=== PATIENT | female | born 1940 | race Caucasian/White ===

== ENCOUNTER → 2016-11-20 | Outpatient (CLI) | payer MEDICARE, BC ==
[~2016-11-20] VITALS: Ht 160 cm; Wt 115.9 kg
[~2016-11-20] MED LIST: ATIVAN 0.50.5 MG/TAB PO; CALTRATE-600 W600 MG PO; COZAAR 25MG25 MG/TAB PO; DIOVAN80 M1 PO; ESTRACE0.5 MG PO; HCTZ 25MG25 MG PO; LASIX 40MG TABL40 MG PO; OMEGA COMPLEX PO; PRAVACHOL10 MG PO; PREMARIN0.625 MG PO; SYNTHROID0.088 MG/T PO
[2016-11-20 09:16] VITALS: BP 152/72; PULSE 68
== END ==
LOC: LIGHT 08:59
DX: G47.33 Obstructive sleep apnea (adult) (pediatric) (principal); E03.9 Hypothyroidism, unspecified; E88.81 Metabolic syndrome and other insulin resistance; E66.01 Morbid (severe) obesity due to excess calories; Z68.42 Body mass index [BMI] 45.0-49.9, adult; Z71.3 Dietary counseling and surveillance

== ENCOUNTER → 2016-12-19 | Outpatient (CLI) | payer MEDICARE, BC ==
[~2016-12-19] VITALS: Ht 160 cm; Wt 118.2 kg
[2016-12-19 09:25] VITALS: BP 138/70; PULSE 76
== END ==
LOC: LIGHT 12-09 15:31
DX: G47.33 Obstructive sleep apnea (adult) (pediatric) (principal); E03.9 Hypothyroidism, unspecified; E88.81 Metabolic syndrome and other insulin resistance; E66.01 Morbid (severe) obesity due to excess calories; Z68.41 Body mass index [BMI] 40.0-44.9, adult; Z71.3 Dietary counseling and surveillance

== ENCOUNTER → 2017-01-22 | Outpatient (CLI) | payer MEDICARE, BC | LOC: LIGHT 10:56 | DX: Z01.89 Encounter for other specified special examinations (principal) ==

== ENCOUNTER → 2017-01-23 | Outpatient (CLI) | payer MEDICARE, BC ==
[~2017-01-23] VITALS: Ht 160 cm; Wt 115.4 kg
[2017-01-23 13:35] VITALS: BP 150/80; PULSE 100
== END ==
LOC: LIGHT 13:18
DX: E66.9 Obesity, unspecified (principal); Z68.42 Body mass index [BMI] 45.0-49.9, adult; Z71.3 Dietary counseling and surveillance

== ENCOUNTER → 2017-02-17 | Outpatient (CLI) | payer MEDICARE, BC | LOC: MC.RAD 13:40 | DX: Z12.31 Encounter for screening mammogram for malignant neoplasm of breast (principal) ==

== ENCOUNTER → 2017-02-27 | Outpatient (CLI) | payer MEDICARE, BC ==
[~2017-02-27] VITALS: Ht 160 cm; Wt 115.0 kg
[2017-02-27 13:32] VITALS: BP 144/70; PULSE 72
== END ==
LOC: LIGHT 11:06
DX: G47.33 Obstructive sleep apnea (adult) (pediatric) (principal); E03.9 Hypothyroidism, unspecified; E88.81 Metabolic syndrome and other insulin resistance; E66.01 Morbid (severe) obesity due to excess calories; Z68.41 Body mass index [BMI] 40.0-44.9, adult; Z71.3 Dietary counseling and surveillance

== ENCOUNTER → 2017-03-27 | Outpatient (CLI) | payer MEDICARE, BC ==
[~2017-03-27] VITALS: Ht 160 cm; Wt 116.8 kg
[2017-03-27 10:32] VITALS: BP 126/52; PULSE 64
== END ==
LOC: LIGHT 10:25
DX: G47.33 Obstructive sleep apnea (adult) (pediatric) (principal); E03.9 Hypothyroidism, unspecified; E88.81 Metabolic syndrome and other insulin resistance; E66.01 Morbid (severe) obesity due to excess calories; Z68.41 Body mass index [BMI] 40.0-44.9, adult; Z71.3 Dietary counseling and surveillance
CPT/HCPCS: G0463

== ENCOUNTER → 2017-03-27 | Outpatient (CLI) | payer MEDICARE, BC | LOC: LIGHT 12-23 08:23 | DX: G47.33 Obstructive sleep apnea (adult) (pediatric) (principal); E03.9 Hypothyroidism, unspecified; E88.81 Metabolic syndrome and other insulin resistance; E66.01 Morbid (severe) obesity due to excess calories; Z68.42 Body mass index [BMI] 45.0-49.9, adult; Z71.3 Dietary counseling and surveillance ==

== ENCOUNTER → 2017-04-24 | Outpatient (CLI) | payer MEDICARE, BC ==
[~2017-04-24] VITALS: Ht 160 cm; Wt 116.1 kg
[2017-04-24 11:01] VITALS: BP 134/64; PULSE 76
== END ==
LOC: LIGHT 10:40
DX: G47.33 Obstructive sleep apnea (adult) (pediatric) (principal); E03.9 Hypothyroidism, unspecified; E88.81 Metabolic syndrome and other insulin resistance; E66.01 Morbid (severe) obesity due to excess calories; Z68.41 Body mass index [BMI] 40.0-44.9, adult; Z71.3 Dietary counseling and surveillance
CPT/HCPCS: G0463

== ENCOUNTER → 2017-05-22 | Outpatient (CLI) | payer MEDICARE, BC ==
[~2017-05-22] VITALS: Ht 160 cm; Wt 115.0 kg
[2017-05-22 16:12] VITALS: BP 120/72; PULSE 88
== END ==
LOC: LIGHT 09:49
DX: G47.33 Obstructive sleep apnea (adult) (pediatric) (principal); E03.9 Hypothyroidism, unspecified; E88.81 Metabolic syndrome and other insulin resistance; E66.01 Morbid (severe) obesity due to excess calories; Z68.41 Body mass index [BMI] 40.0-44.9, adult; Z71.3 Dietary counseling and surveillance
CPT/HCPCS: G0463

== ENCOUNTER 2017-07-13 12:21 | Emergency (ER) | payer MEDICARE, BC ==
[~2017-07-13] VITALS: Ht 157.5 cm; Wt 113.6 kg
[2017-07-13 12:32] VITALS: TEMP 97.8
[2017-07-13 12:40] LABS: COLLECTION METHOD CLEAN CATCH
[2017-07-13 12:54] LABS: MUCOUS Present /lpf; PH 5 (5-8); SQUAMOUS EPITHELIAL 20-50 /hpf; URINE APPEARANCE Cloudy; URINE BACTERIA Occasional /hpf; URINE BILIRUBIN Negative (NEGATIVE); URINE BLOOD Negative (NEGATIVE); URINE CALCIUM OXALATE CRYSTAL Present /hpf; URINE COLOR Amber; URINE GLUCOSE 1+ (NEGATIVE); URINE KETONE Trace (NEGATIVE); URINE LEUKOCYTE ESTERASE Negative (NEGATIVE); URINE NITRATE Negative (NEGATIVE); URINE PROTEIN(semi-quant) 1+ (NEGATIVE); URINE RBC None Seen /hpf; URINE UROBILINOGEN Negative (NEGATIVE)
[2017-07-13 12:56] LABS: BASO # 0.1 (0.0-0.2); BASO % 0.5 % (0.0-2.0); EOS # 0.1 (0.0-0.7); EOS % 0.6 % (0-4.0); GRAN # 9.3 (1.4-6.5); GRAN % 82.4 % (42.2-75.2); HEMATOCRIT 43.9 % (37.0-47.0); HEMOGLOBIN 14.4 g/dl (12.5-16.0); LYMPH # 1.2 (1.2-3.4); LYMPH % 10.8 % (20.0-51.0); MEAN CELL VOLUME 94 fl (80.0-100.0); MEAN CORPUSCULAR HEMOGLOBIN 31 pg (27.0-31.0); MEAN CORPUSCULAR HGB CONC 33 g/dl (33.0-37.0); MEAN PLATELET VOLUME 10.6 fl (7.4-10.4); MONO # 0.6 (0.1-0.6); MONO % 5.2 % (1.7-9.3); PLATELET COUNT 189 K/mm3 (130-400); RED BLOOD COUNT 4.67 M/mm3 (4.10-5.30); REDCELL DISTRIBUTION WIDTH-CV 13.7 % (11.5-14.5)
[2017-07-13 13:06] LABS: ALANINE AMINOTRANSFERASE 50 U/L (9-52); ALKALINE PHOSPHATASE 77 U/L (50-136); ANION GAP 15 mmol/L (7-16); AST,SGOT 44 U/L (15-37); BILIRUBIN,TOTAL 0.4 mg/dL (0.0-1.0); BLOOD UREA NITROGEN 16 mg/dL (7-17); CARBON DIOXIDE 26 mmol/L (22-30); CHLORIDE 101 mmol/L (98-107); CREATININE, serum 1.28 mg/dL (0.52-1.25); GLUCOSE 183 mg/dL (74-106); POTASSIUM 3.7 mmol/L (3.4-5.0); SODIUM 142 mmol/L (137-145); TOTAL PROTEIN 7.4 gm/dL (6.4-8.2)
[2017-07-13 13:23] LABS: LIPASE 93 U/L (23-300)
[2017-07-13 13:24] LABS: C-REACTIVE PROTEIN < 0.5 mg/dL (0.0-0.9)
[2017-07-13 13:30] VITALS: BP 164/63
[2017-07-13] MEDS ORDERED: TORADOL 10MG TA10 MG PO (14:10)
[2017-07-13] MEDS ORDERED: ZOFRAN ODT4 MG PO (14:10)
[2017-07-13] MEDS ORDERED: NORCO 325 MG-51 TAB PO (14:10)
[2017-07-13 14:23] VITALS: PULSE 74
== END 2017-07-13 14:25 | disposition home or self-care (01) ==
LOC: COL.ER 12:21
PROVIDERS: Nurse Practitioner
DX: N13.2 Hydronephrosis with renal and ureteral calculous obstruction (principal); I10 Essential (primary) hypertension; E78.5 Hyperlipidemia, unspecified; E03.9 Hypothyroidism, unspecified; Z90.710 Acquired absence of both cervix and uterus
CPT/HCPCS: J1885; J2405; J3010; J7040; Q9967

== ENCOUNTER 2017-07-16 08:30 | Outpatient (RCR) | payer MEDICARE, BC ==
[~2017-07-16 08:30] MED LIST changes: +NORCO 325 MG-51 TAB PO; +TORADOL 10MG TA10 MG PO; +ZOFRAN ODT4 MG PO
== END 2017-07-17 | disposition home or self-care (01) ==
LOC: WSPT
DX: M17.11 Unilateral primary osteoarthritis, right knee (principal)
CPT/HCPCS: G8978-GP; G8979-GP

== ENCOUNTER 2017-07-19 17:19 | Emergency (ER) | payer MEDICARE, BC ==
[~2017-07-19] VITALS: Ht 162.6 cm; Wt 113.6 kg
[2017-07-19 17:35] VITALS: BP 148/87; PULSE 79; TEMP 98.3
[2017-07-19] MEDS ORDERED: ATARAX 25MG25 MG/TAB PO (18:04)
== END 2017-07-19 18:05 | disposition home or self-care (01) ==
LOC: COL.ER 17:19
DX: L50.9 Urticaria, unspecified (principal); T78.40XA Allergy, unspecified, initial encounter
CPT/HCPCS: J1100

== ENCOUNTER 2017-09-05 08:30 | Outpatient (RCR) | payer MEDICARE, BC ==
[~2017-09-05 08:30] MED LIST changes: +ATARAX 25MG25 MG/TAB PO
== END 2017-09-29 08:55 | disposition home or self-care (01) ==
LOC: WSPT 08:30
DX: M17.11 Unilateral primary osteoarthritis, right knee (principal)
CPT/HCPCS: G8978-GP; G8979-GP; G8980-GP

== ENCOUNTER → 2017-09-18 | Outpatient (CLI) | payer MEDICARE, BC ==
[~2017-09-18] VITALS: Ht 162.6 cm; Wt 115.7 kg
[2017-09-18 10:15] VITALS: BP 118/60; PULSE 64
== END ==
LOC: LIGHT 06-23 14:31
DX: G47.33 Obstructive sleep apnea (adult) (pediatric) (principal); E03.9 Hypothyroidism, unspecified; E88.81 Metabolic syndrome and other insulin resistance; E66.01 Morbid (severe) obesity due to excess calories; Z68.41 Body mass index [BMI] 40.0-44.9, adult; Z71.3 Dietary counseling and surveillance
CPT/HCPCS: G0463

== ENCOUNTER → 2017-10-16 | Outpatient (CLI) | payer MEDICARE, BC ==
[~2017-10-16] VITALS: Ht 162.6 cm; Wt 115.4 kg
[~2017-10-16] MED LIST changes: +PHENTERMINE15 MG PO
[2017-10-16 11:04] VITALS: BP 128/74; PULSE 76
== END ==
LOC: LIGHT 10:53
DX: G47.33 Obstructive sleep apnea (adult) (pediatric) (principal); E03.9 Hypothyroidism, unspecified; E88.81 Metabolic syndrome and other insulin resistance; E66.01 Morbid (severe) obesity due to excess calories; Z68.41 Body mass index [BMI] 40.0-44.9, adult; Z71.3 Dietary counseling and surveillance
CPT/HCPCS: G0463

== ENCOUNTER → 2017-11-20 | Outpatient (CLI) | payer MEDICARE, BC ==
[~2017-11-20] VITALS: Ht 162.6 cm; Wt 113.6 kg
[2017-11-20 13:09] VITALS: BP 138/70; PULSE 64
== END ==
LOC: LIGHT 12:50
DX: G47.33 Obstructive sleep apnea (adult) (pediatric) (principal); E03.9 Hypothyroidism, unspecified; E88.81 Metabolic syndrome and other insulin resistance; E66.01 Morbid (severe) obesity due to excess calories; Z68.41 Body mass index [BMI] 40.0-44.9, adult; Z71.3 Dietary counseling and surveillance
CPT/HCPCS: G0463

== ENCOUNTER → 2017-12-25 | Outpatient (CLI) | payer MEDICARE, BC ==
[~2017-12-25] VITALS: Ht 162.6 cm; Wt 114.1 kg
[2017-12-25 09:22] VITALS: BP 108/56; PULSE 64
== END ==
LOC: LIGHT 09:13
DX: G47.33 Obstructive sleep apnea (adult) (pediatric) (principal); E03.9 Hypothyroidism, unspecified; E88.81 Metabolic syndrome and other insulin resistance; E66.9 Obesity, unspecified; Z68.41 Body mass index [BMI] 40.0-44.9, adult; Z71.3 Dietary counseling and surveillance
CPT/HCPCS: G0463

== ENCOUNTER → 2018-03-26 | Outpatient (CLI) | payer MEDICARE, BC ==
[~2018-03-26] VITALS: Ht 162.6 cm; Wt 115.0 kg
[2018-03-26 10:52] VITALS: BP 120/60; PULSE 68
== END ==
LOC: LIGHT 01-29 11:29
DX: G47.33 Obstructive sleep apnea (adult) (pediatric) (principal); E03.9 Hypothyroidism, unspecified; E88.81 Metabolic syndrome and other insulin resistance; E66.01 Morbid (severe) obesity due to excess calories; Z68.41 Body mass index [BMI] 40.0-44.9, adult; Z71.3 Dietary counseling and surveillance
CPT/HCPCS: G0463

== ENCOUNTER → 2018-07-09 | Outpatient (CLI) | payer MEDICARE, BC ==
[~2018-07-09] VITALS: Ht 162.6 cm; Wt 112.9 kg
[2018-07-09 11:32] VITALS: BP 130/74; PULSE 76
== END ==
LOC: LIGHT 04-30 11:21
DX: G47.33 Obstructive sleep apnea (adult) (pediatric) (principal); E03.9 Hypothyroidism, unspecified; E88.81 Metabolic syndrome and other insulin resistance; E66.01 Morbid (severe) obesity due to excess calories; Z68.42 Body mass index [BMI] 45.0-49.9, adult; Z71.3 Dietary counseling and surveillance
CPT/HCPCS: G0463

== ENCOUNTER → 2018-08-20 | Outpatient (CLI) | payer MEDICARE, BC ==
[~2018-08-20] VITALS: Ht 162.6 cm; Wt 109.8 kg
[~2018-08-20] MED LIST changes: +LASIX 20MG TABL20 MG PO; +NATURAL MAGNES200 MG PO; -SYNTHROID0.088 MG/T PO; +SYNTHROID0.1 MG/TAB PO; +WELLBUTRIN SR150 M1 PO
[2018-08-20 13:51] VITALS: BP 146/80; PULSE 80
== END ==
LOC: LIGHT 13:35
DX: G47.33 Obstructive sleep apnea (adult) (pediatric) (principal); E03.9 Hypothyroidism, unspecified; E88.81 Metabolic syndrome and other insulin resistance; E66.01 Morbid (severe) obesity due to excess calories; Z68.41 Body mass index [BMI] 40.0-44.9, adult; Z71.3 Dietary counseling and surveillance
CPT/HCPCS: G0463

== ENCOUNTER 2018-09-15 09:28 | Emergency (ER) | payer MEDICARE, BC ==
[~2018-09-15] VITALS: Ht 162.6 cm; Wt 107.7 kg
[2018-09-15 09:37] VITALS: TEMP 97.3
[2018-09-15 10:02] LABS: COLLECTION METHOD CLEAN CATCH
[2018-09-15 10:13] LABS: MUCOUS Present /lpf; PH 5 (5-8); URINE APPEARANCE Cloudy; URINE BACTERIA Rare /hpf; URINE BILIRUBIN Negative (NEGATIVE); URINE BLOOD Negative (NEGATIVE); URINE COLOR Amber; URINE GLUCOSE Negative (NEGATIVE); URINE KETONE Negative (NEGATIVE); URINE LEUKOCYTE ESTERASE Trace (NEGATIVE); URINE NITRATE Negative (NEGATIVE); URINE PROTEIN(semi-quant) Negative (NEGATIVE)
[2018-09-15 11:00] LABS: BASO # 0.1 (0.0-0.2); BASO % 0.5 % (0.0-2.0); EOS # 0.2 (0.0-0.7); EOS % 1.8 % (0-4.0); GRAN # 7.6 (1.4-6.5); HEMATOCRIT 41.3 % (37.0-47.0); HEMOGLOBIN 13.4 g/dl (12.5-16.0); LYMPH # 1.6 (1.2-3.4); LYMPH % 15.3 % (20.0-51.0); MEAN CELL VOLUME 93 fl (80.0-100.0); MEAN CORPUSCULAR HEMOGLOBIN 30 pg (27.0-31.0); MEAN CORPUSCULAR HGB CONC 32 g/dl (33.0-37.0); MEAN PLATELET VOLUME 10.5 fl (7.4-10.4); MONO # 0.8 (0.1-0.6); PLATELET COUNT 170 K/mm3 (130-400); RED BLOOD COUNT 4.44 M/mm3 (4.10-5.30); REDCELL DISTRIBUTION WIDTH-CV 13.6 % (11.5-14.5)
[2018-09-15] MEDS ORDERED: SYNTHROID 0.0.025 MG PO (11:07)
[2018-09-15 11:13] LABS: ALBUMIN 3.4 gm/dL (3.5-5.0); BILIRUBIN,TOTAL 0.7 mg/dL (0.0-1.0); C-REACTIVE PROTEIN 5.5 mg/dL (0.0-0.9); CALCIUM 8.9 mg/dL (8.4-10.2); CREATININE, serum 1.15 (0.52-1.25); POTASSIUM 3.4 mmol/L (3.4-5.0); TOTAL PROTEIN 6.6 gm/dL (6.4-8.2)
[2018-09-15] MEDS ORDERED: WELLBUTRIN SR150 M1 PO (12:32)
[2018-09-15] MEDS ORDERED: CIPRO 500MG TA500 MG PO (13:01)
[2018-09-15] MEDS ORDERED: NORCO 325 MG-51 TAB PO (13:01)
[2018-09-15] MEDS ORDERED: FLAGYL500 MG PO (13:01)
[2018-09-15 13:27] VITALS: BP 147/72; PULSE 83
== END 2018-09-15 13:36 | disposition home or self-care (01) ==
LOC: COL.ER 09:28
PROVIDERS: Emergency Medicine; Nurse Practitioner
DX: K57.32 Diverticulitis of large intestine without perforation or abscess without bleeding (principal); N39.0 Urinary tract infection, site not specified; I10 Essential (primary) hypertension; Z90.710 Acquired absence of both cervix and uterus; Z87.442 Personal history of urinary calculi
CPT/HCPCS: J2270; J2405; J7030; Q9967

== ENCOUNTER → 2018-10-07 | Outpatient (CLI) | payer MEDICARE, BC ==
[~2018-10-07] MED LIST changes: +CIPRO 500MG TA500 MG PO; +FLAGYL500 MG PO; +SYNTHROID 0.0.025 MG PO
== END ==
LOC: MC.RAD 14:51
DX: Z12.31 Encounter for screening mammogram for malignant neoplasm of breast (principal)

== ENCOUNTER → 2018-10-29 | Outpatient (CLI) | payer MEDICARE, BC ==
[~2018-10-29] VITALS: Ht 162.6 cm; Wt 109.1 kg
[2018-10-29 15:53] VITALS: BP 148/86; PULSE 80
== END ==
LOC: LIGHT 09-24 10:19
DX: Z12.31 Encounter for screening mammogram for malignant neoplasm of breast (principal); G47.33 Obstructive sleep apnea (adult) (pediatric); E03.9 Hypothyroidism, unspecified; E88.81 Metabolic syndrome and other insulin resistance; E66.01 Morbid (severe) obesity due to excess calories; Z68.41 Body mass index [BMI] 40.0-44.9, adult; Z71.3 Dietary counseling and surveillance
CPT/HCPCS: G0463

== ENCOUNTER → 2018-12-10 | Outpatient (CLI) | payer MEDICARE, BC ==
[~2018-12-10] VITALS: Ht 162.6 cm; Wt 109.3 kg
[2018-12-10 09:40] VITALS: BP 136/60; PULSE 60
== END ==
LOC: LIGHT 09:33
DX: G47.33 Obstructive sleep apnea (adult) (pediatric) (principal); E03.9 Hypothyroidism, unspecified; E88.81 Metabolic syndrome and other insulin resistance; E66.01 Morbid (severe) obesity due to excess calories; Z68.41 Body mass index [BMI] 40.0-44.9, adult; Z71.3 Dietary counseling and surveillance
CPT/HCPCS: G0463

== ENCOUNTER → 2019-01-14 | Outpatient (CLI) | payer MEDICARE, BC ==
[~2019-01-14] VITALS: Ht 162.6 cm; Wt 107.7 kg
[2019-01-14 09:21] VITALS: BP 146/80; PULSE 84
== END ==
LOC: LIGHT 09:16
DX: G47.33 Obstructive sleep apnea (adult) (pediatric) (principal); E03.9 Hypothyroidism, unspecified; E88.81 Metabolic syndrome and other insulin resistance; E66.9 Obesity, unspecified; Z68.41 Body mass index [BMI] 40.0-44.9, adult; Z71.3 Dietary counseling and surveillance
CPT/HCPCS: G0463

== ENCOUNTER → 2019-09-09 | Outpatient (CLI) | payer MEDICARE, BC ==
[~2019-09-09] VITALS: Ht 162.6 cm; Wt 111.8 kg
[2019-09-09 10:09] VITALS: BP 142/70; PULSE 60
== END ==
LOC: LIGHT 02-18 11:49
DX: E66.8 Other obesity (principal); Z68.41 Body mass index [BMI] 40.0-44.9, adult; E03.9 Hypothyroidism, unspecified
CPT/HCPCS: G0463

== ENCOUNTER → 2019-10-28 | Outpatient (CLI) | payer MEDICARE, BC ==
[~2019-10-28] VITALS: Ht 162.6 cm; Wt 111.6 kg
[2019-10-28 11:34] VITALS: BP 136/84; PULSE 66
== END ==
LOC: LIGHT 10-14 11:33
DX: E66.01 Morbid (severe) obesity due to excess calories (principal); Z68.41 Body mass index [BMI] 40.0-44.9, adult; E03.9 Hypothyroidism, unspecified; E88.81 Metabolic syndrome and other insulin resistance
CPT/HCPCS: G0463

== ENCOUNTER → 2019-11-11 | Outpatient (CLI) | payer MEDICARE, BC | LOC: MC.RAD 10:19 | DX: Z12.31 Encounter for screening mammogram for malignant neoplasm of breast (principal) ==

== ENCOUNTER → 2020-01-27 | Outpatient (CLI) | payer MEDICARE, BC ==
[~2020-01-27] VITALS: Ht 162.6 cm; Wt 108.9 kg
[2020-01-27 11:06] VITALS: BP 136/80; PULSE 84
== END ==
LOC: LIGHT 12-16 14:33
DX: E66.01 Morbid (severe) obesity due to excess calories (principal); Z68.41 Body mass index [BMI] 40.0-44.9, adult; E88.81 Metabolic syndrome and other insulin resistance; G47.30 Sleep apnea, unspecified
CPT/HCPCS: G0463

== ENCOUNTER 2020-08-04 22:18 | Observation (INO) | payer MEDICARE, BC ==
[~2020-08-04] VITALS: Ht 162.6 cm; Wt 105.4 kg
[2020-08-04 22:44] LABS: BASO # 0.1 (0.0-0.2); BASO % 0.9 % (0.0-2.0); EOS # 0.2 (0.0-0.7); GRAN # 7.8 (1.4-6.5); GRAN % 73.1 % (42.2-75.2); HEMATOCRIT 46.2 % (37.0-47.0); LYMPH # 1.9 (1.2-3.4); LYMPH % 17.9 % (20.0-51.0); MEAN CELL VOLUME 95 fl (80.0-100.0); MEAN CORPUSCULAR HEMOGLOBIN 31 pg (27.0-31.0); MEAN CORPUSCULAR HGB CONC 33 g/dl (33.0-37.0); MEAN PLATELET VOLUME 10.6 fl (7.4-10.4); MONO # 0.6 (0.1-0.6); MONO % 5.6 % (1.7-9.3); PLATELET COUNT 212 K/mm3 (130-400); RED BLOOD COUNT 4.89 M/mm3 (4.10-5.30); REDCELL DISTRIBUTION WIDTH-CV 13.6 % (11.5-14.5)
[2020-08-04 22:54] LABS: ALBUMIN 4.2 gm/dL (3.5-5.0); BILIRUBIN,TOTAL 0.4 mg/dL (0.0-1.0); CALCIUM 9.5 mg/dL (8.4-10.2); CREATININE, serum 1.18 (0.52-1.25); POTASSIUM 3.7 mmol/L (3.4-5.0); TOTAL PROTEIN 7.7 gm/dL (6.4-8.2)
[2020-08-05 00:23] LABS: COLLECTION METHOD CLEAN CATCH
[2020-08-05 00:29] LABS: MUCOUS Present /lpf; PH 6 (5-8); SQUAMOUS EPITHELIAL 0-2 /hpf; URINE APPEARANCE Cloudy; URINE BACTERIA None Seen /hpf; URINE BILIRUBIN Negative (NEGATIVE); URINE BLOOD Negative (NEGATIVE); URINE COLOR Yellow; URINE GLUCOSE Negative (NEGATIVE); URINE KETONE Negative (NEGATIVE); URINE LEUKOCYTE ESTERASE Negative (NEGATIVE); URINE NITRATE Negative (NEGATIVE); URINE PROTEIN(semi-quant) Negative (NEGATIVE); URINE RBC 0-2 /hpf; URINE UROBILINOGEN Negative (NEGATIVE)
[2020-08-05] MEDS ORDERED: LASIX 40MG TABL40 MG PO (00:50)
[2020-08-05] MEDS ORDERED: ARICEPT10 MG PO (00:51)
[2020-08-05 01:25] VITALS: BP 186/63; PULSE 77; TEMP 97.4
[2020-08-05 01:44] LABS: MAGNESIUM 2.3 mg/dL (1.6-2.3)
[2020-08-05 02:15] LABS: TSH w REFLEX 2.54 uIU/mL (0.465-4.680)
--- NOTE | 2020-08-05 02:23 | NUR ---
PT DOES HAVE A CPAP AT HOME AND WEARS IT AT NIGHT. PT DECLINED A HOSPITAL CPAP TO USE WHILE HERE DURING THIS ADMISSION. PT IS ON ROOM AIR WITH NO RESPIRATORY DISTRESS NOTED AT THIS TIME. DISCUSSED OPTION TO BRING HOME CPAP TO HOSPITAL IF PT WOULD LIKE TO USE HER OWN.
--- NOTE | 2020-08-05 02:30 | NUR ---
Admitted to medical from ER-- DX abdominal pain/nausea. Has PSBO according to CT,, Pt now denies need for pain meds- states has some discomfort but does not need pain meds, denies nausea. IV fluids of NS at 125cc/hr-- getting Potassium per protocol-- could not tolerate IV potassium-states was burning at IV site L/ac,, new IV started to left wrist -running the potassium at 1/2 the rate and concurrent with NS. Up to bathroom- voiding well,, steady on feet,,understabds to call for assist to bathroom.
[2020-08-05 04:32] VITALS: BP 142/46; PULSE 89; TEMP 98.2
--- NOTE | 2020-08-05 05:42 | NUR ---
Has been sleeping since the initial admission - VSS , no pain med or nausea meds given since ER
[2020-08-05 06:33] LABS: BASO % 0.3 % (0.0-2.0); EOS # 0.1 (0.0-0.7); EOS % 0.8 % (0-4.0); GRAN # 8.3 (1.4-6.5); GRAN % 77.2 % (42.2-75.2); HEMATOCRIT 41.4 % (37.0-47.0); HEMOGLOBIN 13.3 g/dl (12.5-16.0); LYMPH # 1.6 (1.2-3.4); LYMPH % 15.3 % (20.0-51.0); MEAN CELL VOLUME 95 fl (80.0-100.0); MEAN CORPUSCULAR HEMOGLOBIN 31 pg (27.0-31.0); MEAN CORPUSCULAR HGB CONC 32 g/dl (33.0-37.0); MEAN PLATELET VOLUME 11.7 fl (7.4-10.4); MONO # 0.7 (0.1-0.6); MONO % 6.1 % (1.7-9.3); PLATELET COUNT 187 K/mm3 (130-400); RED BLOOD COUNT 4.35 M/mm3 (4.10-5.30); REDCELL DISTRIBUTION WIDTH-CV 13.6 % (11.5-14.5)
[2020-08-05 06:46] LABS: CALCIUM 8.6 mg/dL (8.4-10.2); CREATININE, serum 0.96 (0.52-1.25); POTASSIUM 3.9 mmol/L (3.4-5.0)
--- NOTE | 2020-08-05 08:00 | NUR ---
PT PLEASANT, PT AOX4, REPORTS NO BM OR PASSING GAS BUT DENIES N/V AND ABD PAIN. REPORTS HER ABD FEELS MUCH SOFTER THAN LAST NIGHT AND ABD FEELS SOFT PER ASSESSMENT, ASSESSMENT PERFORMED MEDICATIONS GIVEN, VITALS REVIEWED, PT AMBULATED TO BATHROOM AND WAS STEADY, TOOK PILL WITH SIP OF WATER, POTASSIUM INFUSING, NO OTHER NEEDS.
[2020-08-05 08:28] VITALS: BP 148/60; PULSE 70; TEMP 97.7
[2020-08-05 12:40] VITALS: BP 155/60; PULSE 67; TEMP 98.1
[2020-08-05] MEDS ORDERED: ZOFRAN ODT4 MG PO (13:15)
--- NOTE | 2020-08-05 13:59 | NUR ---
Plan is Home with Patricio as care support . SW met with patient and spouse in room. Patient reports that they resided locally. Patient indicated that her PCP is Lala Webb rpeorts that she uses [facility] for Medications and obtains them without difficulty. Patient indicated that her son is a secondary contact Jordin . Patient denies any use of DME or home health. Patient shares that she is independent. Provided education and resources. Nf.
--- NOTE | 2020-08-05 14:03 | NUR ---
ANASTACIO IV'S ON L ARM REMOVED, DISCHARGE EDUCATION PROVIDED, NO QUESTIONS AT THIS TIME.
--- NOTE | 2020-08-05 14:15 | NUR ---
pt escorted out via wheelchair with pt belongings.
== END 2020-08-05 14:15 | disposition home or self-care (01) ==
LOC: COL.ER 22:18 → MEDICAL 08-05 00:07
PROVIDERS: Emergency Medicine; Nurse Practitioner Family; ADMIT Student in an Organized Health Care Education/Training Program
DX: R10.9 Unspecified abdominal pain (principal); R11.2 Nausea with vomiting, unspecified; I10 Essential (primary) hypertension; E78.5 Hyperlipidemia, unspecified; E66.01 Morbid (severe) obesity due to excess calories; G47.33 Obstructive sleep apnea (adult) (pediatric); E03.9 Hypothyroidism, unspecified; M19.90 Unspecified osteoarthritis, unspecified site; R74.01 Elevation of levels of liver transaminase levels; E87.3 Alkalosis; N39.0 Urinary tract infection, site not specified; E87.6 Hypokalemia; F39 Unspecified mood [affective] disorder; F32.9 Major depressive disorder, single episode, unspecified; F41.9 Anxiety disorder, unspecified; F17.210 Nicotine dependence, cigarettes, uncomplicated; F03.90 Unspecified dementia, unspecified severity, without behavioral disturbance, psychotic disturbance, mood disturbance, and anxiety; Z90.710 Acquired absence of both cervix and uterus; Z99.89 Dependence on other enabling machines and devices; Z79.899 Other long term (current) drug therapy; Z79.890 Hormone replacement therapy; Z88.0 Allergy status to penicillin; Z88.1 Allergy status to other antibiotic agents; Z88.8 Allergy status to other drugs, medicaments and biological substances; Z68.41 Body mass index [BMI] 40.0-44.9, adult
CPT/HCPCS: G0378; J1650; J1885; J2405; J2765; J3010; J3480; J7030; Q9967

== ENCOUNTER → 2020-12-22 | Outpatient (CLI) | payer MEDICARE, BC ==
[~2020-12-22] MED LIST changes: +ARICEPT10 MG PO
== END ==
LOC: MC.RAD 08:00
DX: Z12.31 Encounter for screening mammogram for malignant neoplasm of breast (principal)

== ENCOUNTER 2023-05-18 12:39 | Inpatient (IN) | payer MEDICARE, BC ==
[~2023-05-18] VITALS: Ht 162.6 cm; Wt 98.5 kg
[2023-05-18] VITALS (369 sets, daily range): BP systolic 121–182; BP diastolic 54–71; PULSE 93–109; TEMP 98.1; O2SAT 86–98
[2023-05-18 13:02] LABS: BASO # 0.1 K/mm3 (0.0-0.2); BASO % 0.7 % (0.0-2.0); EOS # 0.2 K/mm3 (0.0-0.7); EOS % 1.6 % (0.0-4.0); GRAN # 6.6 K/mm3 (1.4-6.5); LYMPH # 1.9 K/mm3 (1.2-3.4); LYMPH % 20.9 % (20.0-51.0); MEAN CELL VOLUME 92 fl (80.0-100.0); MEAN CORPUSCULAR HEMOGLOBIN 30 pg (27-31); MEAN CORPUSCULAR HGB CONC 33 g/dl (33.0-37.0); MEAN PLATELET VOLUME 10.3 fl (7.4-10.4); MONO # 0.4 K/mm3 (0.1-0.6); MONO % 4.5 % (1.7-9.3); PLATELET COUNT 193 K/mm3 (130-400); RED BLOOD COUNT 4.99 M/mm3 (4.10-5.30); REDCELL DISTRIBUTION WIDTH-CV 12.9 % (11.5-14.5)
[2023-05-18 13:12] LABS: ALANINE AMINOTRANSFERASE 11 U/L (0-55); ALBUMIN 3.6 gm/dL (3.4-4.8); ALKALINE PHOSPHATASE 69 U/L (40-150); ANION GAP 12 mmol/L (7-16); AST,SGOT 16 U/L (5-34); BILIRUBIN,TOTAL 0.5 mg/dL (0.2-1.2); BLOOD UREA NITROGEN 17 mg/dL (10-20); CALCIUM 9.9 mg/dL (8.4-10.2); CARBON DIOXIDE 23 mmol/L (23-31); CHLORIDE 108 mmol/L (98-107); CREATININE, serum 1.33 mg/dL (0.57-1.11); GLUCOSE 143 mg/dL (70-99); POTASSIUM 3.4 mmol/L (3.5-4.5); SODIUM 143 mmol/L (136-145); TOTAL PROTEIN 6.8 gm/dL (6.2-8.1)
[2023-05-18 13:21] LABS: TROPONIN-I < 0.010 ng/mL (0.00-0.033)
[2023-05-18] MEDS ORDERED: hydrALAZINE 20 MG/ML 1 ML VIAL IV ONE (13:45)
[2023-05-18] MEDS ORDERED: Ondansetron 4 MG/2 ML VIAL IV ONE (14:15)
[2023-05-18] MEDS ORDERED: Acetaminophen 500 MG TAB PO PRN (14:30)
[2023-05-18] MEDS ORDERED: Ondansetron 4 MG/2 ML VIAL IV PRN (14:30)
[2023-05-18] MEDS ORDERED: niCARdipine 200 ML IV ONE (14:30)
[2023-05-18] MEDS ORDERED: niCARdipine 200 ML IV SCH (15:30)
[2023-05-18 17:23] LABS: COLLECTION METHOD CLEAN CATCH
[2023-05-18 17:38] LABS: URINE APPEARANCE CLOUDY (CLEAR/HAZY); URINE BLOOD NEGATIVE (NEGATIVE); URINE COLOR Dark Yellow (YELLOW); URINE GLUCOSE NEGATIVE (NEGATIVE); URINE KETONE NEGATIVE (NEGATIVE); URINE NITRATE POSITIVE (NEGATIVE); URINE PROTEIN(semi-quant) 1+ (NEGATIVE)
[2023-05-18 17:53] LABS: MUCOUS PRESENT (NOT PRESENT); URINE BACTERIA MANY /hpf (NONE SEEN); URINE CALCIUM OXALATE CRYSTAL PRESENT (NOT PRESENT); URINE RBC 0-2 /hpf (0-2)
--- NOTE | 2023-05-18 19:00 | NUR ---
REPORT RECEIVED FROM MORAIMA SMITH AND MORAIMA REN. PATIENT EATING DINNER AT THIS TIME. NO SIGNS OF ACUTE DISTRESS.
--- NOTE | 2023-05-18 19:52 | NUR ---
PATIENT ARRIVED TO UNIT AROUND 1600. AND STEPDAUGHTER WITH PATIENT UPON ARRIVAL. ALL BELONGINGS WITH PAITNET THROUGHOUT TRANSFER. PATIENT ALERT AND CALM UPON ARRIVAL.
[2023-05-19] VITALS (369 sets, daily range): BP systolic 122–170; BP diastolic 43–75; PULSE 62–87; TEMP 97.7–98.7; O2SAT 80–100
--- NOTE | 2023-05-19 03:05 | NUR ---
PATIENT VERY AGITATED AND RESTLESS. PULLING AT MONITORING EQUIPMENT AND LINES. PATIENT ONLY ALERT TO SELF. ATTEMPTED REDIRECTING THROUGHOUT THE NIGHT BUT NO LONGER WORKING AT THIS TIME. CONTACTED HOSPITALIST, BRISA, AT THIS TIME REGARDING PATIENT STATUS AND BEHAVIOR. PROVIDER TO PLACE ORDERS.
[2023-05-19] MEDS ORDERED: OLANZapine 5 MG,Water For Injection,Sterile 1 ML IM PRN (03:15)
[2023-05-19 05:42] LABS: BASO % 0.4 % (0.0-2.0); EOS # 0.1 K/mm3 (0.0-0.7); GRAN % 73.6 % (42.2-75.2); HEMATOCRIT 43.3 % (37.0-47.0); HEMOGLOBIN 14.5 g/dl (12.5-16.0); LYMPH # 1.6 K/mm3 (1.2-3.4); LYMPH % 18.9 % (20.0-51.0); MEAN CELL VOLUME 90 fl (80.0-100.0); MEAN CORPUSCULAR HEMOGLOBIN 30 pg (27-31); MEAN CORPUSCULAR HGB CONC 34 g/dl (33.0-37.0); MEAN PLATELET VOLUME 10.3 fl (7.4-10.4); MONO # 0.5 K/mm3 (0.1-0.6); MONO % 5.7 % (1.7-9.3); PLATELET COUNT 183 K/mm3 (130-400); REDCELL DISTRIBUTION WIDTH-CV 13.2 % (11.5-14.5)
[2023-05-19 06:00] LABS: ALBUMIN 3.3 gm/dL (3.4-4.8); BILIRUBIN,TOTAL 0.6 mg/dL (0.2-1.2); CALCIUM 9.8 mg/dL (8.4-10.2); CREATININE, serum 1.17 mg/dL (0.57-1.11); POTASSIUM 3.4 mmol/L (3.5-4.5); TOTAL PROTEIN 6.2 gm/dL (6.2-8.1)
[2023-05-19 06:10] LABS: TROPONIN-I 0.25 ng/mL (0.00-0.033)
[2023-05-19] MEDS ORDERED: ARICEPT ODT10 MG PO (09:45)
[2023-05-19] MEDS ORDERED: PRINIVIL10 MG PO (09:46)
[2023-05-19] MEDS ORDERED: Metoprolol Tartrate 25 MG TAB PO SCH (10:00)
[2023-05-19 12:10] LABS: COLLECTION METHOD CLEAN CATCH
[2023-05-19] MEDS ORDERED: NORCO 325 MG-51 TAB PO (12:11)
[2023-05-19 12:23] LABS: PH 5.5 (5.0-8.5); URINE APPEARANCE CLEAR (CLEAR/HAZY); URINE BLOOD NEGATIVE (NEGATIVE); URINE COLOR Dark Yellow (YELLOW); URINE GLUCOSE NEGATIVE (NEGATIVE); URINE KETONE NEGATIVE (NEGATIVE); URINE NITRATE POSITIVE (NEGATIVE); URINE PROTEIN(semi-quant) NEGATIVE (NEGATIVE); URINE UROBILINOGEN 0.2 E.U/dL (0.2-1.0)
--- NOTE | 2023-05-19 12:30 | NUR ---
PATIENT IS PLEASNTLY CONFUSED. BLOOD PRESSURE HAS REMAINED WITHIN NORMAL LIMITS - CARDENE NOT NEEDED AT THIS TIME. PATIENT KEEPS INSISTING SHES GOING HOME AND TRYING TO PACK THINGS UP. FAMILY STATES THAT HER MEMORY HAS SEVERELY DETERIATED IN THE PAST WEEK. FAMILY HAS NO QUESTIONS OR CONCERNS AT THIS TIME.
--- NOTE | 2023-05-19 14:20 | NUR ---
Handyman met with patient and her family members to complete initial intake. Patient's , Patricio (ph#[phone]) and son, Jordin are at bedside. Patient lives in [place] and sees Dr. Douglas for primary care. Patient obtains medications from [facility] and has both a cane and walker available at home. MARIANO discussed ADLS and Jordin advised he has concerns about patient getting around at home as they have stairs. Jordin also advised patient is in need of knee surgery but this has been put off. Jordin advised patient and Patricio are able to live on one floor of their home, however the issue is that the laundry facilities are on the lower level of the home. MARIANO inquired about DPOA-[employer]. Patricio advised they should have this completed with their commercial attorney, Yanna. SW obtained a copy and placed it on patient's chart. DPOA-HC designates Patricio, then patient's children, Jordin and Melba.
[2023-05-19] MEDS ORDERED: levoFLOXacin 750 MG TAB PO SCH (17:00)
--- NOTE | 2023-05-19 17:03 | NUR ---
PATIENT TRANSFERRED TO MEDICAL UNIT AT THIS TIME. PATIENT REPORT GIVEN TO RN, SEVEN, BEFORE TRANSFER. PATIENT NOT IN DISTRESS AT TIME OF TRANSFER.
--- NOTE | 2023-05-19 17:05 | NUR ---
Patient to room 354 from the ICU by wheelchair. Patient A&Ox2, but confused. Family at the bedside. VSS. IV CDI. Denies pain and discomfort. Nurse oriented the patient to location, call light and room. PAtient standby assist to the bed. Call light within reach. Bed alarm on
[2023-05-19] MEDS ORDERED: cefTRIAXone 1 G in Water For Injection,Sterile 10 ML IV SCH (18:30)
[2023-05-19] MEDS ORDERED: diphenhydrAMINE 25 MG CAP PO SCH (18:31)
--- NOTE | 2023-05-19 18:51 | NUR ---
PATIENT RESTING IN BED WITH SON AND AT THE BEDSIDE WITH TV ON WITH NO ACUTE DISTRESS NOTED. PATIENT ON ROOM AIR. TELEMETRY INTACT. INT TO LEFT AC INTACT WITH NO COMPLICATIONS NOTED. PATIENT DENIES ANY NEEDS AT THIS TIME. PATIENT CARE ASSUMED FROM RISHABH VALERA AT THIS TIME. TELESITTER AT BEDSIDE. BED IN LOW POSIITON WITH WHEELS LOCKED WITH RAILS UP X3 AND CALL LIGHT WITHIN REACH. BED ALARM ON.
--- NOTE | 2023-05-19 20:15 | NUR ---
PATIENT RESTING IN BED WITH TV ON WITH NO FAMILY PRESENT WITH NO ACUTE DISTRESS NOTED. PATIENT ON ROOM AIR. TELEMETRY INTACT. INT TO LEFT AC INTACT WITH NO COMPLICAITONS NOTED. INT WRAPPED WITH TARA WRAP AFTER FLUSH. ASSESSMENT AND MEDICATION ADMINISTRATION COMPLETED AT THIS TIME. PATIENT TOLERATED WELL. ALL NEEDS MET. BED IN LOW POSITION WITH WHEELS LOCKED WITH RAILS UP X3 AND CALL LIGHT WITHIN REACH. TELESITTER AT BEDSIDE. BED ALARM ON.
--- NOTE | 2023-05-19 22:25 | NUR ---
PATIENT UP WALKING IN HALLWAY WITH WALKER WITH DEVELOPMENT TRAINER AT THIS TIME.
--- NOTE | 2023-05-19 22:32 | NUR ---
HOSPITALIST CALLED FOR PATIENT CONFUSION, INCREASED GETING OUT OF BED, AND BEING ONE ON ONE AT THIS TIME. ORDER RECIEVED FOR ADDITION 5 MG OF OLANZAPINE.
[2023-05-19] MEDS ORDERED: OLANZapine 5 MG,Water For Injection,Sterile 1 ML IM ONE (22:45)
[2023-05-20] VITALS (11 sets, daily range): BP systolic 101–167; BP diastolic 65–85; PULSE 50–103; TEMP 97.6–98.1
--- NOTE | 2023-05-20 02:15 | NUR ---
PATIENT CONTINUES TO GET OUT OF BED AND IS CONFUSED. PATIETN ATTEMPTED TO BE REORIENTED BUT FAILED. PATIENT ASSISTED UP TO BATHROOM AND VOIDED. PATIENT THEN ASSISTED TO WHEELCHAIR AND CHARGE NURSE HELPED TO WHEEL PATIENT AROUND UNIT. PATIENT SAT IN WHEELCHAIR AT DESK WITH PRIMARY NURSE.
--- NOTE | 2023-05-20 02:45 | NUR ---
HOSPITALIST CALLED FOR ZYPREXA NOT WORKING AND PATIENT HAVING NO SLEEP AT NIGHT. TELEPHONE ORDER RECIEVED FOR BENADRYL 25 MG PO TIMES ONE.
[2023-05-20] MEDS ORDERED: diphenhydrAMINE 25 MG CAP PO ONE (03:00)
[2023-05-20 07:01] LABS: CALCIUM 9.6 mg/dL (8.4-10.2); CREATININE, serum 1.44 mg/dL (0.57-1.11); POTASSIUM 4.1 mmol/L (3.5-4.5)
[2023-05-20 07:07] LABS: BASO # 0.1 K/mm3 (0.0-0.2); BASO % 0.6 % (0.0-2.0); EOS # 0.2 K/mm3 (0.0-0.7); GRAN # 4.9 K/mm3 (1.4-6.5); GRAN % 63.7 % (42.2-75.2); HEMOGLOBIN 15.2 g/dl (12.5-16.0); LYMPH # 1.8 K/mm3 (1.2-3.4); LYMPH % 23.5 % (20.0-51.0); MEAN CELL VOLUME 93 fl (80.0-100.0); MEAN CORPUSCULAR HEMOGLOBIN 30 pg (27-31); MEAN CORPUSCULAR HGB CONC 32 g/dl (33.0-37.0); MEAN PLATELET VOLUME 10.7 fl (7.4-10.4); MONO # 0.7 K/mm3 (0.1-0.6); MONO % 8.8 % (1.7-9.3); PLATELET COUNT 181 K/mm3 (130-400); RED BLOOD COUNT 5.04 M/mm3 (4.10-5.30); REDCELL DISTRIBUTION WIDTH-CV 13.2 % (11.5-14.5)
[2023-05-20] MEDS ORDERED: Regadenoson 0.08 MG/ML 5 ML SYRINGE IV SCH (09:00)
--- NOTE | 2023-05-20 09:46 | NUR ---
Initial visit; Patient out of room, Plc Controls Engineer spoke with her who said that had given Chastity medication last evening that helped her Dementia and this morning she seemed to be her 'old self.' Chastity is out for tests at this time so [employer]c Controls Engineer asked that her let her know [employer]c Controls Engineer was here and if she has any needs to let the nurse know and she will contact the Plc Controls Engineer. Plc Controls Engineer offered God's blessings to both Chastity and her , Patricio and will keep them in her prayers.
--- NOTE | 2023-05-20 10:11 | NUR ---
Patient alert and oriented to self and situation. Denies pain or discomfort. Off unit for lexiscan this morning, returned around 1000. Activity at baseline, patient refusing walker. Ambulating SBA to bathroom and back to bed. Gait slightly unsteady. at bedside. Call light within reach and bed alarm on.
[2023-05-20] MEDS ORDERED: Nitrofurantoin (Mono/Macro) 100 MG CAP PO SCH (11:01)
--- NOTE | 2023-05-20 13:32 | NUR ---
crop farm workers met with the interdisciplinary team during clinical rounding. MARIANO was notified by Dr. Callahan that patient is in need of home health. MARIANO met with patient, her and patient's daughter in law to discuss home health services. MARIANO presented Medicare.gov list of options for home health in the patient's local area. Family is going to review and discuss, MARIANO will follow up with preference. Discharge plan: Home with Home Health
--- NOTE | 2023-05-20 13:49 | NUR ---
Patient remains stable, family at bedside. Requires cues for all cares. Tolerates food and fluid well. Family voices no concerns other than discharge planning. Call light within reach, all needs met at this time.
[2023-05-20] MEDS ORDERED: ASPIRIN 81M81 MG/TA2 PO (14:44)
[2023-05-20] MEDS ORDERED: LOPRESSOR 225 MG/TAB PO (14:44)
[2023-05-20] MEDS ORDERED: MACROBID 1100 MG/CAP PO (14:44)
--- NOTE | 2023-05-20 16:09 | NUR ---
Discharge instructions discussed with patient and at bedside including follow-up appointments, new/discontinued medications, and education packets. Reviewed last time medications were administered, and discussed recommendation of utilizing a pill box. Patient and verbalized understanding. IV discontinued to left AC with no complications. Telemetry off. Patient escorted out by staff and via wheelchair.
--- NOTE | 2023-05-20 16:50 | NUR ---
Patient and family chose [facility]. secure emailed the referral for home health and discharge orders to [facility]. Discharge plan: Home with home health
== END 2023-05-20 16:12 | disposition home health service (06) | DRG 281 ==
LOC: COL.ER 12:39 → ICU 14:23 → EDBEDREQ 14:47 → MEDICAL 05-19 17:26
PROVIDERS: Physician Assistant; ADMIT Internal Medicine
DX: I16.1 Hypertensive emergency (principal); I21.4 Non-ST elevation (NSTEMI) myocardial infarction; N17.9 Acute kidney failure, unspecified; N39.0 Urinary tract infection, site not specified; I10 Essential (primary) hypertension; E78.5 Hyperlipidemia, unspecified; E66.01 Morbid (severe) obesity due to excess calories; G47.33 Obstructive sleep apnea (adult) (pediatric); F41.9 Anxiety disorder, unspecified; E87.6 Hypokalemia; E03.9 Hypothyroidism, unspecified; B96.20 Unspecified Escherichia coli [E. coli] as the cause of diseases classified elsewhere; I08.3 Combined rheumatic disorders of mitral, aortic and tricuspid valves; F03.90 Unspecified dementia, unspecified severity, without behavioral disturbance, psychotic disturbance, mood disturbance, and anxiety; Z90.710 Acquired absence of both cervix and uterus; Z23 Encounter for immunization; Z87.442 Personal history of urinary calculi; Z88.1 Allergy status to other antibiotic agents; Z88.0 Allergy status to penicillin; Z88.7 Allergy status to serum and vaccine; Z88.8 Allergy status to other drugs, medicaments and biological substances; Z91.148 Patient's other noncompliance with medication regimen for other reason; Z68.38 Body mass index [BMI] 38.0-38.9, adult
CPT/HCPCS: A9500-JZ; J0360; J0696; J1650; J2404; J2405; J2785